=== PATIENT | female | born 2000 | race Caucasian/White ===

== ENCOUNTER 2024-05-26 18:02 | Emergency (ER) | payer OTHER, SELFPAY ==
[2024-05-26 18:04] VITALS: BP 139/88
--- NOTE | 2024-05-26 19:34 | ED.GENMED ---
History of Present Illness
General
Chief Complaint: Back Pain
Source: patient
Exam Limitations: none
Time Seen by Provider: 05/26/24 18:55
Nursing documentation reviewed up to this point in time: agreed with
History of Present Illness
History of Present Illness:
24 y/o F
no sig pmh
works as RN
here with L sided lateral thoracic back pain radiating to L flank since lastnight 11 pm
started gradually but worsened inintensity
took motrin and went to sleep
woke up at 3 am with more severep ain with SOB
felt like the pain took her breath away
it did easy up some, she tried icy hot and heat
pt says that today she felt more pain with back extension and standing than if lying but will get waves of pain
no rash, fever, cough, urinary symptoms
no h/o kdiney stone
no h/o DVT/PE, no OCPs, no leg swelling, no chest pain, no numbness/tingling
Past History
Past History
ED Past Medical History: None
ED Past Surgical History: None
Social History
Tobacco: Non-smoker
Alcohol: None
Drug: None
Personal: Single
Living: with family
Employment: Employed
Phy Exam
Physical Exam
Physical Exam:
GENERAL: Alert , in no apparent distress, comfortable at rest
HEAD: NCAT
NECK: no midline tenderness, active ROM intact, no paraspinal muscle tenderness;
CARDIAC: Regular rate and rhythm, no edema
LUNGS: Clear breath sounds bilaterally, no acute respiratory distress, no wheezes/rales/rhonchi
ABDOMEN: Soft, without focal tenderness, no r/g, no cvat, normal bowel sounds, nondistended
NEUROLOGICAL: Alert and oriented, no focal neuro deficits, CN intact, 5/5 strength, sensation intact, ambulationnormal
SKIN: Warm and dry,
MUSCULOSKELETAL: No edema, well perfused. Normal inspection of the left hip, left leg
Patient has no tenderness to palpation of the hip, minimal tenderness in the SI joint
He has no pain with flexion of the left hip, external rotation, but with internal rotation has discomfort
Back: no tenderness
no reproducibl etendenress
but she has some pain with extension and flexion and rotation; changing positions is somewhat painful
PSYCH: Normal and appropriate interaction.
Course
Orders/Labs/Results
Orders:
Orders
05/26/24 18:06
Electrocardiogram (*1) Urgent
Reason for Study: Shortness of Breath
05/26/24 18:07
EKG- Treatment ONCE
05/26/24 19:22
Morphine Sulfate 4 mg IV NOW STA
Test Result ONCE
05/26/24 19:51
Complete Blood Count/With Diff Urgent
Comprehensive Metabolic Panel Urgent
D-Dimer Urgent
HCG, Serum Qualitative Screen Urgent
Lipase Urgent
Troponin I Urgent
05/26/24 20:10
Urinalysis Reflex To Culture Urgent
Date Specimen was Collected: 05/26/24
Time Specimen was Collected: 19:44
Urine Microscopic Reflex Cult Urgent
Urine Culture Urgent
SHADI Source: U
Specimen Description:
Date Specimen was Collected: 05/26/24
Time Specimen was Collected: 19:44
05/26/24 20:54
CT Abd/Pel (IV only)-DH only Urgent
Comment:
Reason For Exam: left cva pain
05/26/24 22:02
CR Chest - 2 Views Urgent
Comment:
Reason For Exam: SOB
05/26/24 23:02
Ketorolac [Toradol] 30 mg IV NOW STA
Abnormal Lab Results
05/26/24
20:10
Leukocyte Esterase Rfl 3+ A
(Negative)
Urine WBC (Reflex) 50-60 A /HPF
(0-5)
Urine Bacteria (Reflex) Few A
(Negative)
05/26/24 19:51
05/26/24 19:51
Vital Signs
Initial and Last Documented VS:
Initial Vital Signs
Temp Pulse Resp BP Pulse Ox
37.0 C 100 18 139/88 100
05/26/24 18:04 05/26/24 18:04 05/26/24 18:04 05/26/24 18:04 05/26/24 18:04
Last Documented Vital Signs
Temp Pulse Resp BP Pulse Ox
37.0 C 74 12 116/78 100
05/26/24 18:04 05/26/24 22:30 05/26/24 22:30 05/26/24 22:00 05/26/24 22:50
MDM/Problems Addressed
Differential Diagnosis Includes:
kidney stone, MSK back pain, early shingles, pneumoina, pyelo, pancreatitis, [PE
MDM/Problems Addressed:
24 y/o F with no sig pmh
here with L cva region back pain since yesterday
worse with movement
associated with some sob and pleuritic pain at times
no neuros sypmtoms, no cough, no urinary sypmtoms
on exam pt's pain is likeyl MSK but she doesn't have tenderness persay
worked up with labs, D dimer, UA
ua appears contaminated and no urinary symptoms
d dimer neg
ct ap neg
cxr clear
feels better after pain meds
likely msk back pain
return precautions
valium, nsaids
*Critical Care Note
Total Time (30-74mins, 75-104mins- exclusive of procedures): Not Applicable
ED Attending Note
-
Portions of this chart may have been created with voice recognition software.� Occasional wrong word or��sound alike� substitutions may have occurred due to the inherent limitations of voice recognition software.
Discharge Plan
Departure
Patient Disposition: Home (Routine Discharge)
Date of Disposition: 05/26/24
Time of Disposition: 22:59
Patient with high blood pressure during this ER visit?: No
Condition: Fair
Covid-19: Not Applicable
Discharge Problem:
Back pain
Prescriptions:
New
diazepam [Valium] 5 mg tablet
5 mg PO BID PRN (Reason: muscle spasm) Qty: 10 0RF
Referrals:
Dominique Grande PA-C [Family Provider] - Follow up in 5-7 days
Stand Alone Forms: Return to Work
Activity Restrictions/Additional Instructions:
YOUR WORK UP HERE WAS UNREMARKABLE
THIS IS LIKELY MUSCULOSKELETAL BACK PAIN/NERVE PAIN
WATCH FOR A RASH (IN CASE OF SHINGLES AND CALL YOUR DOCTOR IF YOU NOTICE ONE)
TAKE MOTRIN 800 MG EVERY 8 HOURS WITH FOOD FOR 3-5 DAYS
TYLENOL EVERY 6 HOURS FOR 3-5 DAYS
FOR MUSCLE SPASM TRY VALIUM 5 MG EVERY 8-12 HOURS NEEDED, NO DRIVING OR ALCOHOL ON THIS MEDICATION
HEAT NEEDED
RETURN FOR: FEVER, SEVERE PAIN, ARM OR LEG WEAKNESS, VOMITING, WORSENING SHORTNESS OF BREATH OR ANY CONCERNS
Interventions
Interventions:
*Risk Screen - Suicide Last Done: 05/26/24 18:04
*General Assessment Last Done: 05/26/24 18:04
*Neglect/Abuse Screening Last Done: 05/26/24 18:04
*ED- Fall Risk Assessment Last Done: 05/26/24 20:03
*ED COVID-19 Vaccine History Last Done: 05/26/24 18:04
ED-Musculoskeletal Assessment Last Done: 05/26/24 23:06
Discharge Date and Time
Print Language: IRISH
[2024-05-26] MEDS: MORPHINE SULFATE 4 MG IV (19:55)
[2024-05-26 20:02] VITALS: BP 134/72
[2024-05-26 20:03] VITALS: BMI 41.6
[2024-05-26 20:12] LABS: % Basophils 0.4 % (0-2); % Immature Granulocytes 0.2 % (0-0.5); % Lymphocytes 23.3 % (20.5-51.1); % Monocytes 4.4 % (1.7-9.3); % Neutrophils 66.7 % (42.2-75.2); Absolute Eosinophils 0.5 10^3/uL (0-0.7); Absolute Lymphocytes 2.1 10^3/uL (1.2-3.4); Absolute Monocytes 0.4 10^3/uL (0.1-0.6); Hematocrit 38.2 % (37.0-47.0); Hemoglobin 12.9 g/dL (12.0-16.0); Mean Corp Hgb Conc. 33.8 g/dL (33.0-37.0); Mean Corpuscular Hgb 28.5 pg (27.0-31.0); Mean Corpuscular Volume 84.3 fL (81.0-99.0); Mean Platelet Volume 10.4 fL (7.4-10.4); Nucleated Red Blood Cells % 0 %; Platelet Count 259 10^3/uL (130-400); Red Blood Cell Count 4.53 10^6/uL (4.20-5.40); Red Cell Dist. Width 13.2 % (11.5-14.5)
[2024-05-26 20:19] LABS: Urine Albumin Negative (Neg - Trace); Urine Bilirubin Negative (Negative); Urine Character Clear (Clear); Urine Color Yellow; Urine Glucose Negative (Negative); Urine Ketone Negative (Negative); Urine Leukocyte 3+ (Negative); Urine Nitrite Negative (Negative); Urine Occult Blood Negative (Negative); Urine Specific Gravity 1.005 (<1.030); Urine Urobilinogen Negative (Neg - 1+)
[2024-05-26 20:24] LABS: Urine Squamous Cell >30 /LPF (Few)
[2024-05-26 20:25] LABS: Urine Bacteria Few (Negative); Urine Red Blood Cell None Seen /HPF (0-2); Urine White Cell 50-60 /HPF (0-5)
[2024-05-26 20:28] LABS: D-Dimer 0.38 ug/mlFEU (0.00-0.50)
[2024-05-26 20:32] LABS: HCG, Serum Qualitative Screen Negative
[2024-05-26 20:35] LABS: Troponin I < 0.012 ng/ml
[2024-05-26 20:36] LABS: ALT (SGPT) 20 U/L (0-35); AST (SGOT) 22 U/L (14-36); Albumin 3.9 g/dl (3.5-5.0); Alkaline Phosphatase 115 U/L (38-126); Blood Urea Nitrogen 11 mg/dl (7-17); Calcium 9.4 mg/dl (8.4-10.2); Carbon Dioxide 26 mmol/L (22-30); Chloride 107 mmol/L (98-107); Estimated Creatinine Clearance > 125 ml/min; Glucose 94 mg/dl (70-99); Lipase 83 U/L (23-300); Potassium 4.3 mmol/L (3.5-5.1); Sodium 141 mmol/L (135-145); Total Bilirubin 0.4 mg/dl (0.2-1.3); Total Protein 6.8 g/dl (6.3-8.2); eGFR > 60.00
--- NOTE | 2024-05-26 20:37 | EDRN ---
Updated patient and mom on blood work and patient is feeling better at this time.
[2024-05-26 21:00] VITALS: BP 131/75
[2024-05-26 22:00] VITALS: BP 116/78
[2024-05-26] MEDS: TORADOL 30 MG IV (23:09)
[2024-05-26 23:41] VITALS: BP 100/66
== END 2024-05-26 23:48 | disposition home or self-care (01) ==
LOC: EMR 18:02
PROVIDERS: Physician Assistant; EMERGENCY PHYSICIAN Emergency Medicine; FAMILY PHYSICIAN Physician Assistant Medical
DX: M54.6 Pain in thoracic spine (principal); R07.81 Pleurodynia; R06.02 Shortness of breath; R10.9 Unspecified abdominal pain
CPT/HCPCS: 99285; 96374; 96375; 71046; 74177; 80053; 81003; 81015; 83690; 84484; 84703; 85025; 85379; 87086; 93005; Q9967